=== PATIENT | male | born 1945 | race American Indian/Alaskan Native ===

== ENCOUNTER 2017-11-27 07:01 | Day surgery (SDC) | payer MEDICARE, BC ==
[2017-11-14 09:59] VITALS: BMI 28.3
[2017-11-27] MEDS ORDERED: cefTRIAXone (Rocephin) 1 gm Inj ONE (11:28)
[2017-11-27] MEDS ORDERED: Propofol 10 mg/ml Inj (20 ML) ONE (11:29)
[2017-11-27] MEDS ORDERED: Midazolam 2 MG/2 ML VIAL ONE (11:54)
[2017-11-27] MEDS ORDERED: HYDROmorphone 0.5 mg/0.5 ml ISec IVP PRN (13:32)
[2017-11-27] MEDS ORDERED: Sodium Chloride 0.9% 1,000 ML IV SCH (13:45)
--- NOTE | 2017-11-27 14:03 | OP ---
PROCEDURE DATE: 11/27/2017 PREOPERATIVE DIAGNOSIS: Bladder outlet obstruction. POSTOPERATIVE DIAGNOSIS: Bladder outlet obstruction. PROCEDURES: A cystoscopy, GreenLight laser vaporization of prostate. ATTENDING SURGEON: Tyler Stiles MD. ANESTHESIA: General. SPECIMENS: There were none. DRAINS: A 20-[place] 3-way Sun catheter. COMPLICATIONS: There were none. OPERATIVE FINDINGS: After informed consent was obtained, the patient was taken to the operating room and placed on the operating table and anesthesia was administered. The patient was then placed in the dorsal lithotomy position and prepped and draped in the usual sterile fashion. The patient received IV antibiotics prior to start of the procedure. A 21-[place] scope was placed in the patient's urethra and advanced proximally under direct vision until the bladder was entered. A full survey inspection of bladder was then performed, which revealed no stones, papillary tumors or foreign bodies of the bladder. Both ureteral orifices were visualized and appeared within normal limits. There was grade 1 to 2 trabeculation with multiple cellules. At this point, the scope was withdrawn to the level of the verumontanum. The view from the verumontanum revealed markedly enlarged occlusive-appearing lateral lobes with moderate median lobe growth into the bladder. At this point, a GreenLight laser fiber was obtained. It was passed through the scope and laser vaporization of the prostate was undertaken. The prostate was vaporized systematically starting from the bladder neck proximally and working towards the verumontanum distally. The lateral lobe tissue, median lobe tissue and apical tissue at the 12 o'clock position were all systematically vaporized down to the appropriate depth. Any bleeding encountered during the vaporization was controlled using the laser fiber on cauterizing function. After the vaporization was complete, the view from the verumontanum revealed a widely opened bladder neck and prostatic fossa. There was no active bleeding noted. At this point, the bladder was inspected. Small amount of debris was able to be irrigated out of the bladder. Both ureteral orifices were intact without damage. At this point, the procedure was completed, the scope was withdrawn and a 20-[place] 3-way Sun catheter was passed and placed to continuous bladder irrigation. The patient tolerated the procedure well. He was taken to the recovery room awake in a stable condition. Tyler Stiles MD [facility] # [id number]
[2017-11-27] MEDS ORDERED: HYDROmorphone 0.5 mg/0.5 ml ISec IVP ONE (14:21)
[2017-11-27] MEDS ORDERED: HYDROmorphone 0.5 mg/0.5 ml ISec ONE (14:22)
[2017-11-27 15:09] VITALS: RESP 18; TEMP 97.5
[2017-11-27 15:39] VITALS: BP 155/85; PULSE 80; O2SAT 97
== END 2017-11-27 16:10 | disposition home or self-care (01) ==
LOC: SDS 07:01
PROVIDERS: ATTEND Urology
DX: N32.0 Bladder-neck obstruction (principal)
CPT/HCPCS: 52648; A4358; J0696; J1170; J2001; J2250; J2405; J2704; J2765; J3010; J7030 ×2; J7120